=== PATIENT | male | born 1950 | race Caucasian/White ===

== ENCOUNTER → 2021-03-16 | Outpatient (CLI) | payer OTHER ==
[~2021-03-16] MED LIST: AMA1T PO; ASPI-1265 PO; ATOR20TA PO; ENAL2.5T40 PO; LOP25T PO; METF-950 PO
== END | disposition home or self-care (01) ==
LOC: VAS 10:37
PROVIDERS: ATTEND Orthopaedic Surgery
DX: I73.9 Peripheral vascular disease, unspecified (principal)
CPT/HCPCS: 93922

== ENCOUNTER 2022-05-03 09:50 | Emergency (ER) | payer MEDICARE, OTHER ==
[~2022-05-03] VITALS: Ht 175.3 cm; Wt 88.6 kg
[~2022-05-03 09:50] MED LIST changes: +METF-1203 PO; -METF-950 PO
[2022-05-03 09:53] VITALS: BP 171/64
[2022-05-03] MEDS ORDERED: LIDOcaine 1% W/epiNEPHrine 1:100,000 20ml vial IJ ONE (10:20)
[2022-05-03] MEDS ORDERED: TETanus/Pertussis (Acell)/Diphther VAC/PF (Tdap-Adult) 0.5ml syringe IMVAC ONE (10:20)
== END 2022-05-03 13:21 | disposition home or self-care (01) ==
LOC: ER 09:51
DX: S51.011A Laceration without foreign body of right elbow, initial encounter (principal); I10 Essential (primary) hypertension; E11.9 Type 2 diabetes mellitus without complications; Z79.82 Long term (current) use of aspirin; Z79.899 Other long term (current) drug therapy; W19.XXXA Unspecified fall, initial encounter; Y93.89 Activity, other specified; Y92.89 Other specified places as the place of occurrence of the external cause; Y99.8 Other external cause status
CPT/HCPCS: 12001; 90471; 90715; 99284; A6223; A6449